=== PATIENT | female | born 1975 | race Caucasian/White ===

== ENCOUNTER 2017-03-14 07:22 | Emergency (ER) | payer OTHER ==
[2017-03-14] MEDS ORDERED: SYNTHROID PO (07:29)
== END 2017-03-14 08:12 | disposition home or self-care (01) ==
LOC: SED 07:22
DX: J03.00 Acute streptococcal tonsillitis, unspecified (principal); E03.9 Hypothyroidism, unspecified; Z79.899 Other long term (current) drug therapy
CPT/HCPCS: 87651; 99283